=== PATIENT | male | born 1945 | race Caucasian/White ===

== ENCOUNTER → 2017-02-18 | Outpatient (CLI) | payer MEDICARE ==
[~2017-02-18] MED LIST: ASPIRIN81 MG PO; LEXAPRO10 MG PO; LIPITOR20 MG PO; ONE DAILY MULT1 EAC1 PO; ULTRAM 50MG50 MG PO
--- NOTE | 2017-02-18 14:56 | Diagnostic Imaging Report ---
PROCEDURE: L-SPINE COMPLETE, including bilateral obliques COMPARISON: None. INDICATIONS: CHRONIC LOWER BACK PAIN FINDINGS: Mild straightening of the normal lumbar lordosis. Moderate disc space narrowing at L1-L2, mild at L2-L3, L3-4, moderate at L4-L5 and L5-S1. Mild posterior disc osteophytes at L4-5 and L5-S1. Mild facet arthrosis at L4-L5 and L5-S1. Vertebral body heights are preserved. No significant neural foramina narrowing. CONCLUSION: Moderate multilevel disc space narrowing in the lumbar spine. Dictated by: Rosales Jimenez M.D. on 02/18/2017 at 15:04 Electronically approved by: Rosales Jimenez M.D. on 02/18/2017 at 15:04
== END ==
LOC: RAD 13:49
PROVIDERS: ATTEND Family Medicine
DX: M54.5 Low back pain (principal)
CPT/HCPCS: 72110